=== PATIENT | male | born 1965 | race African-American/Black ===

== ENCOUNTER 2020-12-03 14:53 | Emergency (ER) | payer MEDICAID ==
[~2020-12-03] VITALS: Ht 167.6 cm; Wt 118.0 kg
[2020-12-03] MEDS ORDERED: ACETAMINOPHEN 325MG TABLET PO STA (18:38)
[2020-12-03] MEDS ORDERED: SODIUM CHLORIDE 0.9% 1,000 ML IV ONE (18:45)
[2020-12-03 19:27] LABS: BASOPHILS % 0.3 % (0.0-2.0); HEMATOCRIT. 46.6 % (42.0-52.0); HEMOGLOBIN. 16.1 g/dL (14.0-18.0); LYMPHOCYTES % 16.9 % (20.0-50.0); MEAN CORPUSCULAR HEMOGLOBIN 28.8 pg (28.0-32.0); MEAN CORPUSCULAR VOLUME 83.3 fL (80.0-94.0); MEAN PLATELET VOLUME 9.4 fl (7.4-10.4); MONOCYTES % 9.1 % (2.0-8.0); NEUTROPHILS % 73.7 % (40.0-76.0); PLATELET 176 x1000/uL (130-400)
[2020-12-03 19:42] LABS: CHLORIDE 98 mEq/L (98-107)
[2020-12-03] MEDS ORDERED: SODIUM CHLORIDE 0.9% 500 ML IV ONE ×2 (20:45→22:45)
[2020-12-03] MEDS ORDERED: INSULIN LISPRO 100 UNITS/ML SUBCUT ONE (22:45)
[2020-12-03 23:40] VITALS: BP 192/110
== END 2020-12-03 23:58 | disposition home or self-care (01) ==
LOC: ER 16:14
DX: U07.1 COVID-19 (principal); I10 Essential (primary) hypertension; E11.9 Type 2 diabetes mellitus without complications; Z79.4 Long term (current) use of insulin
CPT/HCPCS: 36415; 71045; 80053; 82962; 85025; 93005; 96360; 96372; 99285; C9803; J1815; J7030; J7040; U0003; U0005